=== PATIENT | male | born 1965 | race Caucasian/White ===

== ENCOUNTER 2017-02-25 14:57 | Emergency (ER) | payer MEDICARE, MEDICAID ==
[~2017-02-25] VITALS: Ht 172.7 cm; Wt 75.0 kg
[~2017-02-25 14:57] MED LIST: ASPIRIN 32325 MG/TAB PO; LOPRESSOR 550 MG/TAB PO; NO HOME MEDICATIONS; TYLENOL 325MG325 MG PO
[2017-02-25 15:02] VITALS: BP 213/133; PULSE 110; TEMP 99
[2017-02-25] MEDS ORDERED: ZOVIRAX800 MG PO (15:38)
[2017-02-25] MEDS ORDERED: NORCO 325 MG-51 TAB PO (15:45)
== END 2017-02-25 16:00 | disposition home or self-care (01) ==
LOC: COL.ER 14:57
DX: B02.22 Postherpetic trigeminal neuralgia (principal); G71.0 Muscular dystrophy; Z99.3 Dependence on wheelchair

== ENCOUNTER 2022-01-26 13:34 | Inpatient (IN) | payer MEDICARE, MEDICAID ==
[~2022-01-26] VITALS: Ht 172.7 cm; Wt 78.4 kg
[2022-01-26] VITALS (380 sets, daily range): BP systolic 172–185; BP diastolic 117; PULSE 92–129; TEMP 98.2; O2SAT 90–100
[~2022-01-26 13:34] MED LIST changes: +NORCO 325 MG-51 TAB PO; +ZOVIRAX800 MG PO
[2022-01-26 14:22] LABS: COLLECTION METHOD CLEAN CATCH
[2022-01-26 14:27] LABS: BASO # 0.1 K/mm3 (0.0-0.2); EOS # 0.2 K/mm3 (0.0-0.7); EOS % 1.5 % (0.0-4.0); GRAN # 7.3 K/mm3 (1.4-6.5); GRAN % 72.3 % (42.2-75.2); MEAN CELL VOLUME 89 fl (80.0-100.0); MEAN CORPUSCULAR HGB CONC 33 g/dl (33.0-37.0); MONO # 0.5 K/mm3 (0.1-0.6); MONO % 4.6 % (1.7-9.3); PLATELET COUNT 293 K/mm3 (130-400); RED BLOOD COUNT 6.21 M/mm3 (4.20-5.60); REDCELL DISTRIBUTION WIDTH-CV 13.5 % (11.5-14.5)
[2022-01-26 14:30] LABS: HEMATOCRIT 55.2 % (42.0-52.0); HEMOGLOBIN 18.3 g/dl (13.5-18.0); INR 1.1 (0.8-3.0); MEAN CORPUSCULAR HEMOGLOBIN 29 pg (27-31); PROTHROMBIN TIME 12.7 SECONDS (9.7-12.8)
[2022-01-26 14:32] LABS: PARTIAL THROMBOPLASTIN TIME 35.3 SECONDS (26.0-37.0)
[2022-01-26 14:34] LABS: PH 8 (5-8); SQUAMOUS EPITHELIAL None Seen /hpf (0-10); URINE APPEARANCE Clear (CLEAR/HAZY); URINE BACTERIA None Seen /hpf (NONE SEEN); URINE BILIRUBIN Negative (NEGATIVE); URINE BLOOD 1+ (NEGATIVE); URINE COLOR Straw (YELLOW); URINE GLUCOSE 1+ (NEGATIVE); URINE KETONE Trace (NEGATIVE); URINE LEUKOCYTE ESTERASE Negative (NEGATIVE); URINE NITRATE Negative (NEGATIVE); URINE PROTEIN(semi-quant) 2+ (NEGATIVE); URINE UROBILINOGEN Negative (NEGATIVE); URINE WBC 0-2 /hpf (0-2)
[2022-01-26 14:40] LABS: TRICYCLIC ANTIDEPRESS URINE NEGATIVE
[2022-01-26 14:41] LABS: ALANINE AMINOTRANSFERASE 20 U/L (0-55); ALBUMIN 4.2 gm/dL (3.5-5.0); ALCOHOL(ethanol),MEDICAL < 10 mg/dL (0-10); ALKALINE PHOSPHATASE 120 U/L (40-150); ANION GAP 17 mmol/L (7-16); AST,SGOT 27 U/L (5-34); BILIRUBIN,TOTAL 0.7 mg/dL (0.2-1.2); BLOOD UREA NITROGEN 13 mg/dL (8-26); CALCIUM 9.8 mg/dL (8.4-10.2); CARBON DIOXIDE 24 mmol/L (22-29); CHLORIDE 97 mmol/L (98-107); CREATININE, serum 0.42 mg/dL (0.72-1.25); GLUCOSE 129 mg/dL (70-99); POTASSIUM 3.8 mmol/L (3.5-4.5); SODIUM 138 mmol/L (136-145); TOTAL PROTEIN 8.7 gm/dL (6.2-8.1)
[2022-01-26 14:47] LABS: TROPONIN-I 0.011 ng/mL (0.00-0.033)
--- NOTE | 2022-01-26 17:08 | NUR ---
PT RECEIVED FROM ED RN. PT NOT ON ANY DRIP'S OR IV FLUIDS. PT ALERT AND ORIENTED X4, HAS APPROPERITE VERBAL RESPONSES ALTHOUGH RESPONSSES SLIGHTLY DELAYED, THIS IS BASELINE PER PT. PT WITH MINIMAL MOVEMENT OR ROM REPORTED BASELINE. PT WITH BL FOOT DROP, LT FOOT WITH MORE OF DROP THAN RT. B/L LE SIMA DISCOLORATION AND SIGNIFICANT YELLOWISH SCALING. YELLOWISH SCALING ALSO NOTED ON B/L UE. B/L FEET WITH DRYNESS, CRACKING. B/L HAND CONTRACTURES. SPECIAL 'SOFT TOUCH' CALL LIGHT GIVEN TO PT.
--- NOTE | 2022-01-26 17:45 | NUR ---
Discussed goal with BP and cardene drip with hospitalist. States that the goal is to keep the MAP around 150 and systolic BP around 180 or less. Cardene drip currently on hold can re-start if BP and MAP start to increase outside of goal range.
--- NOTE | 2022-01-26 19:15 | NUR ---
Patient received IV contrast with head CT. Chest CT also ordered with contrast. Discussed with hospitalist and will hold off on obtaining chest CT until the morning.
[2022-01-27] VITALS (1152 sets, daily range): BP systolic 120–201; BP diastolic 86–130; PULSE 82–104; TEMP 98.1–98.7; O2SAT 72–100
--- NOTE | 2022-01-27 07:00 | NUR ---
BEDSIDE REPORT RECEIVED FROM JUAN HER. PT ADMITTED FOR HYPERTENSIVE CRISIS. NURSING STAFF INSTRUCTED TO KEEP SBP AROUND 180 AND MAP AROUND 150. PT ALERT AND ORIENTED THIS AM. C/O PAIN IN LEGS AND BACK. PT STATES THIS IS NORMAL FOR HIM. SPO2 MID 90'S ON RA. FC TO DEPENDENT DRAINAGE. 20G PIV TO RIGHT HAND. 22G PIV TO LEFT AC. PT LIES SUPINE WITH HOB ELEVATED. CALL LIGHT IN REACH.
--- NOTE | 2022-01-27 09:38 | NUR ---
MIRA met with the patient to discuss discharge plan. The patient lives in [place] with his , Lisa (ph#[phone]). He reports needing assistance with ADLs and is wheelchair bound. He states that his and caregivers through [employer] assist him with his ADLs and that he also has lifts at home for transfers. The patient states that he does not have a PCP at this time. He states that his PCP was Dr. Obrien, but his care was not transferred to anyone else when Dr. Obrien left and he has not established care with a new PCP since. He receives his medications at [facility]. He reports no difficulties affording his meds. He confirms he has not been taking them as prescribed, due to not having someone new to refill the prescriptions. The patient is unsure if he has a DPOA-HC. MIRA contacted the patient's , Lisa, to review the above. Lisa states that she is employed through [employer] to be one of his caregivers. They also have one other caregiver, Albin, through [employer] coming in to help with the patient. They are trying to get more help through [employer], but have not found another person yet. She states that the patient has a Motorized Hover[employer] and two lifts in the home. She states that she believes they just contacted [facility] last week to try and get established with Dr. Hou. She states that they live right by their clinic and it would be the easiest for them to go there. Lisa does not drive. She states that they are suppose to send her paperwork to fill out. Lisa was interested in obtaining Living Will and DPOA-HC paperwork. MIRA placed the forms in the patient's room. Lisa reports that the plan is for the patient to return back home with her upon discharge. MIRA contacted Mathew at [facility] to follow up about paperwork for the patient. Mathew reports that they have the patient in their system, but not information on him or about them wanting paperwork. She states that the patient or would need to call and request new patient paperwork. They would then need to fill this out and return it back. Their physicians would look it over and decide if they can accept or not. Mathew states that at this time, it would likely be Dr. Das taking new patients, but he has to accept the patient and it may be a couple weeks out before they could get the patient in, pending completion of paperwork. MIRA updated the patient's , Lisa. Lisa plans to contact [facility]. [facility] to ask for PT/OT to be ordered. *Discharge plan: home with and private duty services. Will await PT/OT evals*
--- NOTE | 2022-01-27 12:51 | NUR ---
The patient's RN notified MIRA that the patient's arrived and they had questions about the DPOA-HC and Living Will. MIRA met with the patient, his , and [id number]. MIRA explained the DPOA-HC and Living Will to the patient. The patient verbalized that he would like to complete the DPOA-HC now. He voiced he wants to designate his and then his [id number], Dana Alexander, as the alternate. Due to the patient's muscular dystropy, the patient's held the pen up to the patient's hand so he could sign. MIRA and Gabriella asbestos brake lining finisher helper, witnessed the patient sign. MIRA provided the patient with the original and some copies. MIRA placed a copy in the patient's chart.
--- NOTE | 2022-01-27 20:07 | NUR ---
Assessment complete and charted. and Mother in law at bedside. Denies needs at this time. All questions answered from family. Call light in reach.
--- NOTE | 2022-01-27 22:45 | NUR ---
Repositioned patient and bed bath given, linens change
[2022-01-28] VITALS (975 sets, daily range): BP systolic 108–191; BP diastolic 75–139; PULSE 73–90; TEMP 98.6–99.1; O2SAT 84–99
[2022-01-28 06:40] LABS: BASO # 0.1 K/mm3 (0.0-0.2); BASO % 0.5 % (0.0-2.0); EOS % 0.1 % (0.0-4.0); GRAN # 13.3 K/mm3 (1.4-6.5); GRAN % 87.8 % (42.2-75.2); LYMPH % 6.5 % (20.0-51.0); MEAN CELL VOLUME 88 fl (80.0-100.0); MEAN CORPUSCULAR HGB CONC 34 g/dl (33.0-37.0); MEAN PLATELET VOLUME 9.9 fl (7.4-10.4); MONO # 0.7 K/mm3 (0.1-0.6); MONO % 4.8 % (1.7-9.3); PLATELET COUNT 296 K/mm3 (130-400); RED BLOOD COUNT 6.23 M/mm3 (4.20-5.60); REDCELL DISTRIBUTION WIDTH-CV 13.8 % (11.5-14.5)
[2022-01-28 06:43] LABS: HEMATOCRIT 54.8 % (42.0-52.0); HEMOGLOBIN 18.6 g/dl (13.5-18.0); MEAN CORPUSCULAR HEMOGLOBIN 30 pg (27-31)
--- NOTE | 2022-01-28 06:57 | NUR ---
Patient had uneventful night. Patient repositioned as much as patient would allow did refuse repositioning several times throughout night. Patient was educated on importance of repositioning.
[2022-01-28 07:18] LABS: CALCIUM 8.8 mg/dL (8.4-10.2); CREATININE, serum 0.41 mg/dL (0.72-1.25); POTASSIUM 3.4 mmol/L (3.5-4.5)
--- NOTE | 2022-01-28 07:22 | NUR ---
Report given to Cami RN
--- NOTE | 2022-01-28 14:06 | NUR ---
Initial visit; Patient didn't really respond to [employer] other than decline Spiritual Care. Patient was later placed on Palliative Care. Fleet Driver will keep [place] in her prayers.
--- NOTE | 2022-01-28 18:30 | NUR ---
MORNING REPORT RECEIVED. PT REFUSING BED TURNS. PT EDUCATED ABOUT INCREASED RISK FOR PRESSURE ULCERS FROM DECLINING BED TURNS. PT DECLINING USE OF SCD'S. PT EDUCATED ABOUT REDUCING THE RISK OF DVT'S. PT HAS VERBAL UNDERSTANDING WITH CONTINUED REFUSAL. PROVIDER NOTIFIED. PT DECLINING HYGIENE CARE. AT BEDSIDE AND WILL PREFORM HYGIENE.
--- NOTE | 2022-01-28 20:05 | NUR ---
ASSESSMENT COMPLETE AND CHARTED. PATIENT DENIES NEEDS. GIVEN TYLENOL FOR HEADACHE. CALL LIGHT IN REACH.
[2022-01-29] VITALS (1199 sets, daily range): BP systolic 121–148; BP diastolic 87–103; PULSE 75–92; TEMP 98.7–99.7; O2SAT 80–99
--- NOTE | 2022-01-29 16:35 | NUR ---
0630 BEDSIDE REPORT RECEIVED FROM JUAN DENNY. PT IS RESTING IN BED AT THIS TIME. VSS. CARDENE DRIP INFUSING AT 5MG/HR TO R WRIST, IV SITE WNL. BRITT IN PLACE, CLOUDY DARK YELLOW URINE NOTED TO DRAINAGE BAG. PT REFUSES TO BE TURNED OR REPOSISTIONED IT CAUSES HIM PAIN. TURN ASSIST ON BED IS ON TO REDUCE PRESSURE TO BONY PROMINENCES. LEGS FLOATED ON PILLOWS. SCD'S IN PLACE BILATERALLY. PT HAS DENIES NEEDS AT THIS TIME, SOFT TOUCH CALL LIGHT IN REACH. 1040 PT IS ABLE TO EAT SMALL BITES OF FOOD AND TAKE SIPS OF LIQUID W/ ASSISTANCE, NO CHOKING OR COUGHING OBSERVED. PT DOES CLEAR HIS THROAT OCCASIONALLY. PT DOES TAKE PILLS WHOLE, ONE AT A TIME WITH SIPS OF WATER. 1050 CARDENE DRIP DISCONTINUED PER DR. FLORES. 1600 PT HAD MEDIUM SEMI FORMED BM. POOR URINE OUTPUT NOTED. ENCOURAGED PO FLUID INTAKE. PT'S AT BEDSIDE, STATES SHE OFFERS FLUIDS REGULARLY. WILL CONTINUE TO MONITOR.
[2022-01-30] VITALS (984 sets, daily range): BP systolic 114–159; BP diastolic 85–110; PULSE 84–97; TEMP 98.7–99.1; O2SAT 79–98
--- NOTE | 2022-01-30 07:00 | NUR ---
BEDSIDE REPORT RECEIVED FROM JUAN HER. PT APPEARS TO BE SLEEPING AT THIS TIME. NO S/S DISCOMFORT.
[2022-01-30] MEDS ORDERED: TOPROL XL100 MG PO (10:25)
[2022-01-30] MEDS ORDERED: ZOFRAN ODT4 MG PO (10:26)
[2022-01-30] MEDS ORDERED: ZESTRIL40 MG PO (10:26)
--- NOTE | 2022-01-30 17:02 | NUR ---
PT DISCHARGED TO HOME. HAS PRIVATE CARE GIVERS THAT ASSIST WITH ADL'S. PT TRANSFERED TO HOME VIA AMBULANCE DUE TO BEING UNABLE TO SIT IN CHAIR POSITION. PT AND INSTRUCTED TO ASSISTANT PROFESSOR OF HISTORY MEDICATIONS FROM PHARMACY AND FOLLOW UP WITH PCP WITHING THE NEXT 7-10 DAYS. PT AND VERBALIZE UNDERSTANDING.
== END 2022-01-30 17:02 | disposition home or self-care (01) | DRG 304 ==
LOC: COL.ER 13:34 → ICU 15:55
PROVIDERS: Emergency Medicine; Family Medicine; ADMIT Internal Medicine
DX: I16.1 Hypertensive emergency (principal); G93.41 Metabolic encephalopathy; I10 Essential (primary) hypertension; Z20.822 Contact with and (suspected) exposure to COVID-19; R47.1 Dysarthria and anarthria; G47.33 Obstructive sleep apnea (adult) (pediatric); E66.9 Obesity, unspecified; G71.01 Duchenne or Becker muscular dystrophy; Z79.82 Long term (current) use of aspirin; Z74.01 Bed confinement status; Z87.891 Personal history of nicotine dependence; Z68.25 Body mass index [BMI] 25.0-25.9, adult
CPT/HCPCS: 99233-AI; J0360; J2405; J7030; J7050; Q9967